=== PATIENT | male | born 1950 | race American Indian/Alaskan Native ===

== ENCOUNTER 2021-12-11 06:08 | Inpatient (IN) | payer MEDICARE ==
[2021-12-11 07:57] LABS: Basophils % (Auto) 0.6 % (0.0-1.8); Eosinophils # (Auto) 0.2 K/mm3 (0.0-0.4); Eosinophils % (Auto) 2.5 % (0.0-4.3); Hematocrit 21.3 % (35.5-45.6); Hemoglobin 7.1 gm/dl (11.8-15.2); Lymphocytes # (Auto) 2.2 K/mm3 (1.2-5.4); Lymphocytes % (Auto) 29.1 % (13.4-35.0); Mean Corpuscular HGB Conc 34 % (32-34); Mean Corpuscular Volume 75 fl (84-94); Monocytes # (Auto) 0.7 K/mm3 (0.0-0.8); Monocytes % (Auto) 9.8 % (0.0-7.3); Platelet Count 226 K/mm3 (140-440); Red Blood Count 2.84 M/mm3 (3.65-5.03)
[2021-12-11 08:20] LABS: Albumin 3.7 g/dL (3.9-5); Calcium 8.8 mg/dL (8.4-10.2)
[2021-12-11] MEDS ORDERED: SODIUM CHLORIDE 0.9% 1000 ML 1,000 ML IV ONE (11:00)
--- NOTE | 2021-12-11 11:48 | Emergency Department Report ---
ED GI Bleed HPI - General Chief complaint: GI Bleed Stated complaint: RECTAL BLEEDING Time Seen by Provider: 12/11/21 10:29 Source: patient, old records reviewed Mode of arrival: Ambulatory Limitations: No Limitations - History of Present Illness Initial comments: 71-year-old male history of hypertension, type 2 diabetes, coronary artery disease with stent placement x3 around August 2019 presents to the hospital complaining of intermittent blood with bowel movement for the past 4 days. Patient planes of generalized weakness without dyspnea on exertion, abdominal pain, or chest pain. Last blood in the stool was prior to ED arrival this morning. As per medical record review patient was admitted here February 2021 for hemoglobin of 6 and rectal bleeding suspected to be due to diverticulosis. Patient did not follow-up with outpatient GI as suggested for colonoscopy. Last colonoscopy was 2009 as per patient. Severity scale (0 -10): 2 - Related Data Home Medications Medication Instructions Recorded Confirmed Last Taken Aspirin [Vazalore] 81 mg PO DAILY 02/23/21 02/23/21 02/22/21 08:00 Atorvastatin [Lipitor] 40 mg PO DAILY 02/23/21 02/23/21 02/22/21 08:00 Glipizide/Metformin HCl 10 mg PO BID 02/23/21 02/23/21 02/22/21 08:00 [glipiZIDE-Metformin 5-500 mg] Metoprolol 25 mg PO DAILY 02/23/21 02/23/21 Unknown Multi-Day Plus Minerals Tablet 1 tab PO DAILY 02/23/21 02/23/21 02/22/21 08:00 NIFEdipine [Nifedipine ER] 60 mg PO BID 02/23/21 02/23/21 02/22/21 08:00 Omeprazole 20 mg PO DAILY 02/23/21 02/23/21 02/22/21 08:00 Sildenafil 100 mg PO DAILY PRN 02/23/21 02/23/21 Unknown Sitagliptin Phosphate [Januvia] 100 mg PO DAILY 02/23/21 02/23/21 02/22/21 08:00 Previous Rx's Medication Instructions Recorded Last Taken Type Linagliptin [Tradjenta] 5 mg PO QDAY tablet 02/24/21 Unknown Rx Metoprolol [Lopressor TAB] 25 mg PO DAILY tablet 02/24/21 Unknown Rx NIFEdipine XL [Procardia Xl] 60 mg PO BID tablet 02/24/21 Unknown Rx Pantoprazole [Protonix TAB] 20 mg PO QDAC 30 Days #30 tablet. 02/24/21 Unknown Rx lisinopriL [Zestril TAB] 20 mg PO DAILY tablet 02/24/21 Unknown Rx Allergies Allergy/AdvReac Type Severity Reaction Status Date / Time clopidogrel [From Plavix] Allergy Hives Verified 02/22/21 15:24 ED Review of Systems ROS: Stated complaint: RECTAL BLEEDING Other details as noted in HPI Comment: All other systems reviewed and negative ED Past Medical Hx - Past Medical History Hx Hypertension: Yes Hx Diabetes: Yes Additional medical history: CAD - Surgical History Hx Coronary Stent: Yes - Social History Smoking Status: Never Smoker Substance Use Type: None - Medications Home Medications: Home Medications Medication Instructions Recorded Confirmed Last Taken Type Aspirin [Vazalore] 81 mg PO DAILY 02/23/21 02/23/21 02/22/21 08:00 History Atorvastatin [Lipitor] 40 mg PO DAILY 02/23/21 02/23/21 02/22/21 08:00 History Glipizide/Metformin HCl 10 mg PO BID 02/23/21 02/23/21 02/22/21 08:00 History [glipiZIDE-Metformin 5-500 mg] Metoprolol 25 mg PO DAILY 02/23/21 02/23/21 Unknown History Multi-Day Plus Minerals Tablet 1 tab PO DAILY 02/23/21 02/23/21 02/22/21 08:00 History NIFEdipine [Nifedipine ER] 60 mg PO BID 02/23/21 02/23/21 02/22/21 08:00 History Omeprazole 20 mg PO DAILY 02/23/21 02/23/21 02/22/21 08:00 History Sildenafil 100 mg PO DAILY PRN 02/23/21 02/23/21 Unknown History Sitagliptin Phosphate [Januvia] 100 mg PO DAILY 02/23/21 02/23/21 02/22/21 08:00 History Linagliptin [Tradjenta] 5 mg PO QDAY tablet 02/24/21 Unknown Rx Metoprolol [Lopressor TAB] 25 mg PO DAILY tablet 02/24/21 Unknown Rx NIFEdipine XL [Procardia Xl] 60 mg PO BID tablet 02/24/21 Unknown Rx Pantoprazole [Protonix TAB] 20 mg PO QDAC 30 Days #30 tablet. 02/24/21 Unknown Rx lisinopriL [Zestril TAB] 20 mg PO DAILY tablet 02/24/21 Unknown Rx ED Physical Exam - General Limitations: No Limitations - Other Other exam information: General: No acute distress Head: Atraumatic Eyes: normal appearance ENT: Moist mucous membranes Neck: Normal appearance, no midline tenderness Chest: Clear to auscultation bilaterally CV: Regular rate and rhythm Abdomen: Soft, normal bowel sounds, nontender, nondistended, no rebound or guarding Rectal: Positive blood stool with mild blood Back: Normal inspection Extremity: Normal inspection, full range of motion Neuro: Alert O x 3, no facial asymmetry, speech clear, no gross motor sensory deficit Psych: Appropriate behavior Skin: No rash ED Course Vital Signs 12/11/21 12/11/21 06:13 10:13 Temperature 98.5 F Pulse Rate 67 Respiratory 18 16 Rate Blood Pressure 125/51 [Right] O2 Sat by Pulse 99 99 Oximetry - Consultations Consultation #1: 12/11/21 12:24 case d/w DR Blanca DENNIS television and radio repairer. will consult, recommends admission ED Medical Decision Making - Lab Data Result diagrams: 12/11/21 07:38 12/11/21 07:38 Lab Results 12/11/21 12/11/21 12/11/21 Range/Units 07:38 07:38 07:42 WBC 7.5 (4.5-11.0) K/mm3 RBC 2.84 L (3.65-5.03) M/mm3 Hgb 7.1 L (11.8-15.2) gm/dl Hct 21.3 L (35.5-45.6) % MCV 75 L (84-94) fl MCH 25 L (28-32) pg MCHC 34 (32-34) % RDW 21.0 H (13.2-15.2) % Plt Count 226 (140-440) K/mm3 Lymph % (Auto) 29.1 (13.4-35.0) % Hanson % (Auto) 9.8 H (0.0-7.3) % Eos % (Auto) 2.5 (0.0-4.3) % Baso % (Auto) 0.6 (0.0-1.8) % Lymph # (Auto) 2.2 (1.2-5.4) K/mm3 [place]on # (Auto) 0.7 (0.0-0.8) K/mm3 Eos # (Auto) 0.2 (0.0-0.4) K/mm3 Baso # (Auto) 0.0 (0.0-0.1) K/mm3 Seg Neutrophils % 58.0 (40.0-70.0) % Seg Neutrophils # 4.3 (1.8-7.7) K/mm3 Sodium 138 (137-145) mmol/L Potassium 4.6 (3.6-5.0) mmol/L Chloride 108.2 H (98-107) mmol/L Carbon Dioxide 22 (22-30) mmol/L Anion Gap 12 mmol/L BUN 35 H (9-20) mg/dL Creatinine 1.8 H (0.8-1.3) mg/dL Estimated GFR 45 ml/min BUN/Creatinine Ratio 19 % Glucose 165 H (75-100) mg/dL Calcium 8.8 (8.4-10.2) mg/dL Total Bilirubin 0.20 (0.1-1.2) mg/dL AST 14 (5-40) units/L ALT 14 (7-56) units/L Alkaline Phosphatase 32 L (35-129) units/L Total Protein 5.9 L (6.3-8.2) g/dL Albumin 3.7 L (3.9-5) g/dL Albumin/Globulin Ratio 1.7 % Blood Type A POSITIVE Antibody Screen Negative - Medical Decision Making 71-year-old male presents to the hospital with rectal bleeding for the last 4 days. Patient does have anemia and reports symptoms of generalized weakness. No tenderness on examination. Brown bloody stool o rectal exam which is guaiac positive. Hemoglobin currently 7.1. Case discussed with GI doctor who recommends admission and will consult. Critical Care Time: No Critical care attestation.: If time is entered above; I have spent that time in minutes in the direct care of this critically ill patient, excluding procedure time. ED Disposition Clinical Impression: Symptomatic anemia, Rectal bleeding, Mild renal insufficiency Disposition: ADMITTED INPATIENT Is pt being admited?: Yes Condition: Stable Time of Disposition: 13:07 (DR Lala/hospitalist)
[2021-12-11] MEDS ORDERED: ACETAMINOPHEN 325 MG TAB PO PRN (13:08)
[2021-12-11] MEDS ORDERED: ONDANSETRON 4 MG/2 ML INJ IV PRN (13:08)
[2021-12-11] MEDS ORDERED: MORPHINE 2 MG/1 ML INJ IV PRN (13:12)
[2021-12-11] MEDS ORDERED: SODIUM CHLORIDE 0.9% 500 ML 500 ML IV SCH (17:30)
--- NOTE | 2021-12-11 18:32 | Cat Scan Report ---
CTA ABDOMEN AND PELVIS WITHOUT AND WITH CONTRAST INDICATION / CLINICAL INFORMATION: Active diverticular bleed. TECHNIQUE: Axial CT images were obtained through the abdomen and pelvis before and after after inject ion of 100 cc of Omnipaque 350 IV contrast. 3 plane MIP / 3D reconstructions were produced. All CT sc ans at this location are performed using CT dose reduction for ALARA by means of automated exposure c ontrol. COMPARISON: None available. FINDINGS: AORTA: Mild plaque RENAL ARTERIES: No significant abnormality. CELIAC ARTERY: No significant abnormality. SUPERIOR MESENTERIC ARTERY: No significant abnormality. INFERIOR MESENTERIC ARTERY: No significant abnormality. RIGHT ILIAC ARTERIES: There is mild plaque without significant stenosis.. LEFT ILIAC ARTERIES: There is mild plaque without significant stenosis.. ADDITIONAL FINDINGS: There is accumulation of contrast in the proximal right colon which increases ov er time characteristic of active bleeding site. The liver, spleen, pancreas, adrenal glands, and kidneys show no acute abnormality. There are cysts n oted in the left kidney. There are scattered diverticula in the colon. There is a high density nodular structure in the cecum which measures approximately 1 cm. There is a radiopaque oval structure in the cecum adjacent to this nodular abnormality. The site of contrast accumulation is distal to these structures. SKELETAL: No acute abnormality. IMPRESSION: 1. There is indication of active bleeding into the proximal right colon with accumulation of tracer i n the lumen of the proximal right colon. 2. There is a 1 cm nodular structure which is high in density in the cecum there is a oval radiopaque structure within the colon adjacent to this which is of uncertain etiology. The site of contrast acc umulation within the right colon is approximately 8 to 10 cm distal to this nodular abnormality.. Signer Name: Ishmael Shannon MD Signed: 12/11/2021 6:28 PM Workstation Name: [id number]
--- NOTE | 2021-12-11 21:10 | Consultation ---
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 Today, he has had 2 bloody bowel movements but noted that they seem to be more red and more voluminous. This morning, he became tired while in the shower. He denies any abdominal pain, nausea, vomiting. There has been no chest pain or shortness of breath. Bowel movements are usually once or twice a day and there has been no change. There is been no weight loss. Of note, he has had bleeding like this before. He was previously here in February 2021 where he was found to have a hemoglobin of 6.0 and admitted for transfusion and evaluation. He had had hematochezia 3 weeks prior to that admission, which lasted 3 days. This spontaneously reso lved. He denied having abdominal pain, nausea, vomiting, chest pain, lightheadedness, or dizziness. He was told at that time to get a colonoscopy done as an outpatient, but he did not follow-up at that time. Patient notes that he had prior similar bleeding in 2009, and was hospitalized at [facility] at that time and diagnosed with diverticular bleed. He was advised to stay on a high-fiber diet which he did for several years and then gradually tapered off. He denies weight loss. His last colonoscopy was in 2009 and was normal. There is no family history of colon cancer. Patient does have chronic GERD for which he takes daily omeprazole. He is takes a daily 81 mg aspirin for coronary artery disease. Medications reviewed. 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 denies: smoking, alcohol abuse Medications and Allergies Allergies Allergy/AdvReac Type Severity Reaction Status Date / Time clopidogrel [From Plavix] Allergy Hives Verified 02/22/21 15:24 Home Medications Medication Instructions Recorded Confirmed Last Taken Type Aspirin [Vazalore] 81 mg PO DAILY 02/23/21 02/23/21 02/22/21 08:00 History Atorvastatin [Lipitor] 40 mg PO DAILY 02/23/21 02/23/21 02/22/21 08:00 History Glipizide/Metformin HCl 10 mg PO BID 02/23/21 02/23/21 02/22/21 08:00 History [glipiZIDE-Metformin 5-500 mg] Metoprolol 25 mg PO DAILY 02/23/21 02/23/21 Unknown History Multi-Day Plus Minerals Tablet 1 tab PO DAILY 02/23/21 02/23/21 02/22/21 08:00 History NIFEdipine [Nifedipine ER] 60 mg PO BID 02/23/21 02/23/21 02/22/21 08:00 History Omeprazole 20 mg PO DAILY 02/23/21 02/23/21 02/22/21 08:00 History Sildenafil 100 mg PO DAILY PRN 02/23/21 02/23/21 Unknown History Sitagliptin Phosphate [Januvia] 100 mg PO DAILY 02/23/21 02/23/21 02/22/21 08:00 History Linagliptin [Tradjenta] 5 mg PO QDAY tablet 02/24/21 Unknown Rx Metoprolol [Lopressor TAB] 25 mg PO DAILY tablet 02/24/21 Unknown Rx NIFEdipine XL [Procardia Xl] 60 mg PO BID tablet 02/24/21 Unknown Rx Pantoprazole [Protonix TAB] 20 mg PO QDAC 30 Days #30 tablet. 02/24/21 Unknown Rx lisinopriL [Zestril TAB] 20 mg PO DAILY tablet 02/24/21 Unknown Rx Active Meds: Active Medications Acetaminophen (Acetaminophen 325 Mg Tab) 650 mg PO Q4H PRN PRN Reason: Pain MILD(1-3)/Fever >100.5/MUELLER Sodium Chloride (Nacl 0.9% 500 Ml) 500 mls @ 0 mls/hr IV ONCE@1730 PIETER Stop: 12/11/21 22:00 Morphine Sulfate (Morphine 2 Mg/1 Ml Inj) 2 mg IV Q4H PRN PRN Reason: Pain, Moderate (4-6) Ondansetron HCl (Ondansetron 4 Mg/2 Ml Inj) 4 mg IV Q8H PRN PRN Reason: Nausea And Vomiting Sodium Chloride (Sodium Chloride 0.9% 10 Ml Flush Syringe) 10 ml IV BID [facility] Sodium Chloride (Sodium Chloride 0.9% 10 Ml Flush Syringe) 10 ml IV PRN PRN PRN Reason: LINE FLUSH Review of Systems All systems: negative (As per HPI) Exam - Constitutional Vitals: Temp Pulse Resp BP Pulse Ox 97.9 F 55 L 14 135/58 100 12/11/21 19:30 12/11/21 19:30 12/11/21 19:30 12/11/21 19:30 12/11/21 19:30 General appearance: Present: no acute distress - EENT Eyes: Present: PERRL, EOM intact ENT: hearing intact - Respiratory Respiratory effort: normal Respiratory: bilateral: CTA - Cardiovascular Rhythm: regular Heart Sounds: Present: S1 & S2 - Abdominal General gastrointestinal: Present: soft, non-tender Results - Labs CBC & Chem 7: 12/11/21 07:38 12/11/21 07:38 Labs: Abnormal lab results 12/11/21 12/11/21 12/11/21 Range/Units 07:38 07:38 07:42 RBC 2.84 L (3.65-5.03) M/mm3 Hgb 7.1 L (11.8-15.2) gm/dl Hct 21.3 L (35.5-45.6) % MCV 75 L (84-94) fl MCH 25 L (28-32) pg RDW 21.0 H (13.2-15.2) % Hubbard % (Auto) 9.8 H (0.0-7.3) % Chloride 108.2 H (98-107) mmol/L BUN 35 H (9-20) mg/dL Creatinine 1.8 H (0.8-1.3) mg/dL Glucose 165 H (75-100) mg/dL Alkaline Phosphatase 32 L (35-129) units/L Total Protein 5.9 L (6.3-8.2) g/dL Albumin 3.7 L (3.9-5) g/dL Crossmatch See Detail Assessment and Plan 1. Hematocheziagoing on for 4 days. Patient is anemic. This is likely diverticular in origin though mass lesions cannot be excluded. Upper GI source is possible but much less likely given the character of the bleeding. Monitor hemoglobin and transfuse as needed Empiric proton pump inhibitor We will proceed with colonoscopy tomorrow
[2021-12-11] MEDS ORDERED: POLYETHYLENE GLYCOL/ELECT SOLN 4000 ML PO ONE (21:13)
[2021-12-12] MEDS ORDERED: SODIUM CHLORIDE 0.9% 1000 ML 1,000 ML IV SCH (00:15)
--- NOTE | 2021-12-12 06:51 | History and Physical Report ---
History of Present Illness Date of examination: 12/11/21 Date of admission: 12/11/21 13:08 Chief complaint: Bright red blood per rectum since last night History of present illness: 71-year-old -G[place] male with history of diverticulosis and 2 episodes of lower GI bleed in the past couple of years comes in for lower GI bleed since last night. Some abdominal pain present. Cramping pain. Intermittent bleeding from the lower GI tract since last night. No lightheadedness no dizziness no syncope. Patient had first episode of diverticulosis in 2009 and second episode of diverticulosis February 2021 and was treated at [facility] no chest pain. Patient did not follow-up with outpatient GI - Past Medical History --Hypertension: Yes --Diabetes: Yes --Additional medical history: CAD - Surgical History --Coronary Stent: Yes - Social History --Smoking Status: Never Smoker --Substance Use Type: None -Family history --Htn Review of Systems ROS: Constitutional no weight loss or weight gain no fever or chills HEENT no sore throat no post nasal drip no diplopia Neck no neck stiffness no lymph gland enlargement Chest and lungs no shortness of breath cough or wheezing CVS no chest pain no diaphoresis no palpitations GI per rectal bleed since last night Genitourinary system no dysuria no flank pain Musculoskeletal system no muscle pains no joint pains UNIT CLERK no syncope no seizures Skin no rash no itching Psychiatric no depression no homicidal or suicidal tendencies Hematologic no lymphedema or bruising Endocrine no polydipsia no polyuria no cold intolerance no heat intolerance Past History Past Medical History: CAD (Stents placed in August 2019), diabetes, GERD, hypertension Past Surgical History: PTCA (With stents in August 2019) 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 denies: smoking, alcohol abuse Medications and Allergies Allergies Allergy/AdvReac Type Severity Reaction Status Date / Time clopidogrel [From Plavix] Allergy Hives Verified 02/22/21 15:24 Home Medications Medication Instructions Recorded Confirmed Last Taken Type Aspirin [Vazalore] 81 mg PO DAILY 02/23/21 12/12/21 12/10/21 09:00 History Atorvastatin [Lipitor] 40 mg PO DAILY 02/23/21 12/12/21 12/10/21 21:00 History Glipizide/Metformin HCl 10 mg PO BID 11/12/12/21 12/10/21 21:00 History [glipiZIDE-Metformin 5-500 mg] Metoprolol 25 mg PO DAILY 02/23/21 02/23/21 Unknown History Multi-Day Plus Minerals Tablet 1 tab PO DAILY 02/23/21 02/23/21 12/10/21 21:00 History NIFEdipine [Nifedipine ER] 60 mg PO BID 02/23/21 12/12/21 12/11/21 09:00 History Omeprazole 20 mg PO DAILY 02/23/21 02/23/21 02/22/21 08:00 History Sildenafil 100 mg PO DAILY PRN 02/23/21 12/12/21 12/09/21 20:45 History Sitagliptin Phosphate [Januvia] 100 mg PO DAILY 02/23/21 12/12/21 12/10/21 09:00 History Linagliptin [Tradjenta] 5 mg PO QDAY tablet 02/24/21 12/10/21 09:00 Rx NIFEdipine XL [Procardia Xl] 60 mg PO BID tablet 02/24/21 Unknown Rx Pantoprazole [Protonix TAB] 20 mg PO QDAC 30 Days #30 tablet. 02/24/21 12/12/21 12/10/21 09:00 Rx lisinopriL [Zestril TAB] 20 mg PO DAILY tablet 02/24/21 12/12/21 12/10/21 09:00 Rx Metoprolol [Lopressor TAB] 12.5 mg PO DAILY 12/12/21 12/12/21 12/10/21 09:00 History Active Meds: Active Medications Acetaminophen (Acetaminophen 325 Mg Tab) 650 mg PO Q4H PRN PRN Reason: Pain MILD(1-3)/Fever >100.5/MUELLER Sodium Chloride (Nacl 0.9% 1000 Ml) 1,000 mls @ 100 mls/hr IV DIRECT PIETER Last Admin: 12/12/21 00:53 Dose: 100 mls/hr Morphine Sulfate (Morphine 2 Mg/1 Ml Inj) 2 mg IV Q4H PRN PRN Reason: Pain, Moderate (4-6) Ondansetron HCl (Ondansetron 4 Mg/2 Ml Inj) 4 mg IV Q8H PRN PRN Reason: Nausea And Vomiting Sodium Chloride (Sodium Chloride 0.9% 10 Ml Flush Syringe) 10 ml IV BID [facility] Last Admin: 12/11/21 22:18 Dose: 10 ml Sodium Chloride (Sodium Chloride 0.9% 10 Ml Flush Syringe) 10 ml IV PRN PRN PRN Reason: LINE FLUSH Exam - Constitutional Vitals: Temp Pulse Resp BP Pulse Ox 98.2 F 68 17 149/77 98 12/11/21 20:55 12/11/21 21:30 12/11/21 21:30 12/11/21 21:30 12/11/21 21:55 General appearance: Present: mild distress, well-nourished - EENT Eyes: Present: PERRL ENT: hearing intact, clear oral mucosa - Neck Neck: Present: supple, normal ROM - Respiratory Respiratory effort: normal Respiratory: bilateral: CTA - Cardiovascular Heart rate: 78 Rhythm: regular Heart Sounds: Present: S1 & S2. Absent: rub, click - Extremities Extremities: no ischemia, pulses intact, pulses symmetrical, No edema Peripheral Pulses: within normal limits - Abdominal General gastrointestinal: Present: soft, non-tender, non-distended, normal bowel sounds Male genitourinary: Present: normal - Rectal Rectal Exam: stool bloody - Integumentary Integumentary: Present: clear, warm, dry - Musculoskeletal Musculoskeletal: gait normal, strength equal bilaterally - Psychiatric Psychiatric: appropriate mood/affect, intact judgment & insight - Neurologic Neurologic: CNII-XII intact, moves all extremities Results - Labs CBC & Chem 7: 12/11/21 07:38 12/11/21 07:38 Labs: Laboratory Last Values WBC 7.5 K/mm3 (4.5-11.0) 12/11/21 07:38 RBC 2.84 M/mm3 (3.65-5.03) L 12/11/21 07:38 Hgb 7.1 gm/dl (11.8-15.2) L 12/11/21 07:38 Hct 21.3 % (35.5-45.6) L 12/11/21 07:38 MCV 75 fl (84-94) L 12/11/21 07:38 MCH 25 pg (28-32) L 12/11/21 07:38 MCHC 34 % (32-34) 12/11/21 07:38 RDW 21.0 % (13.2-15.2) H 12/11/21 07:38 Plt Count 226 K/mm3 (140-440) 12/11/21 07:38 Lymph % (Auto) 29.1 % (13.4-35.0) 12/11/21 07:38 [place] % (Auto) 9.8 % (0.0-7.3) H 12/11/21 07:38 Eos % (Auto) 2.5 % (0.0-4.3) 12/11/21 07:38 Baso % (Auto) 0.6 % (0.0-1.8) 12/11/21 07:38 Lymph # (Auto) 2.2 K/mm3 (1.2-5.4) 12/11/21 07:38 [place] # (Auto) 0.7 K/mm3 (0.0-0.8) 12/11/21 07:38 Eos # (Auto) 0.2 K/mm3 (0.0-0.4) 12/11/21 07:38 Baso # (Auto) 0.0 K/mm3 (0.0-0.1) 12/11/21 07:38 Seg Neutrophils % 58.0 % (40.0-70.0) 12/11/21 07:38 Seg Neutrophils # 4.3 K/mm3 (1.8-7.7) 12/11/21 07:38 Sodium 138 mmol/L (137-145) 12/11/21 07:38 Potassium 4.6 mmol/L (3.6-5.0) 12/11/21 07:38 Chloride 108.2 mmol/L (98-107) H 12/11/21 07:38 Carbon Dioxide 22 mmol/L (22-30) 12/11/21 07:38 Anion Gap 12 mmol/L 12/11/21 07:38 BUN 35 mg/dL (9-20) H 12/11/21 07:38 Creatinine 1.8 mg/dL (0.8-1.3) H 12/11/21 07:38 Estimated GFR 45 ml/min 12/11/21 07:38 BUN/Creatinine Ratio 19 % 12/11/21 07:38 Glucose 165 mg/dL (75-100) H 12/11/21 07:38 Calcium 8.8 mg/dL (8.4-10.2) 12/11/21 07:38 Total Bilirubin 0.20 mg/dL (0.1-1.2) 12/11/21 07:38 AST 14 units/L (5-40) 12/11/21 07:38 ALT 14 units/L (7-56) 12/11/21 07:38 Alkaline Phosphatase 32 units/L (35-129) L 12/11/21 07:38 Total Protein 5.9 g/dL (6.3-8.2) L 12/11/21 07:38 Albumin 3.7 g/dL (3.9-5) L 12/11/21 07:38 Albumin/Globulin Ratio 1.7 % 12/11/21 07:38 Blood Type A POSITIVE 12/11/21 07:42 Antibody Screen Negative 12/11/21 07:42 Crossmatch See Detail 12/11/21 07:42 Microbiology: Microbiology 12/11/21 10:58 Stool Stool Occult Blood (THOMAS) - Final - Imaging and Cardiology Imaging and Cardiology: CT angiogram There is indication of active bleeding and the proximal right colon with accumulation of tracer within the lumen of the proximal right colon There is a 1 cm nodular structure which is high intensity in the cecum. There is a oval radiopaque structure within the colon adjacent to this which is of uncertain etiology. The site of contrast recommendation within the right colon is approximately 8 to 10 cm distal to this nodular abnormality. Cooper/IV: Voiding Method Toilet Assessment and Plan Advance Directives: Yes (Full code) VTE prophylaxis?: Mechanical Plan of care discussed with patient/family: Yes - Patient Problems (1) Lower GI bleed Current Visit: Yes Status: Acute Plan to address problem: Possible diverticular bleed because of with past history GI consulted Hemoglobin and hematocrit every 8 hours Hemoglobin is 7.1 and borderline Will transfuse 1 unit of packed red blood cells and anticipation of further GI. (2) Symptomatic anemia Current Visit: Yes Status: Acute Plan to address problem: Transfuse 1 unit of packed red blood cells because the hemoglobin is 7.1 (3) DANNI (acute kidney injury) Current Visit: Yes Status: Acute Plan to address problem: IV fluids for now Vasomotor nephropathy (4) T2DM (type 2 diabetes mellitus) Current Visit: Yes Status: Chronic Qualifiers: Diabetes mellitus detention insulin use: unspecified detention insulin use status Plan to address problem: Accu-Cheks every 6 and coverage for now Check hemoglobin A1c (5) Hypertension Current Visit: Yes Status: Chronic Qualifiers: Hypertension type: primary hypertension Qualified Code(s): I10 - Essential (primary) hypertension Plan to address problem: On antihypertensives and GI prophylaxis (6) Advance care planning Current Visit: Yes Status: Acute Plan to address problem: Disease education conducted, care plan discussed, diagnosis and prognosis discussed. Patient is full code. Care plan +30 minutes. Patient acknowledged understanding.
--- NOTE | 2021-12-12 08:53 | Consultation ---
History of Present Illness Consult date: 12/12/21 Reason for consult: other (lower GI bleeding) Requesting physician: DALTON BRAVO Chief complaint: lower GI bleeding - History of present illness this is a 71 yo man with hx of CAD s/p coronary stents x3 last in 2020, HTN, presented with recurrent GI bleeding. he saw red blood with stool for the last 2 days that increased in volume yesterday which brought him to the ER. he was seen for the same presentation in April where the bleeding was self limited but he failed to follow up outpatient for colonoscopy. his last colonoscopy was in 2009 had small benign polyp. denies abdominal or rectal pain, denies constipation, denies protruding hemorrhoids. denies history of cancer. the patient's hb was 7 in ED and he was hemodynamically stable. he was given 1 unit PRBC overnight and labs are pending. remained stable and started golytely, did not see any blood in his stool since 1am. Past History Past Medical History: CAD (Stents placed in August 2019), diabetes, GERD, hypertension Past Surgical History: appendectomy (open in 1960s), PTCA (With stents in August 2019) Social history: , other ([employer]). denies: smoking, alcohol abuse Medications and Allergies Allergies Allergy/AdvReac Type Severity Reaction Status Date / Time clopidogrel [From Plavix] Allergy Hives Verified 02/22/21 15:24 Home Medications Medication Instructions Recorded Confirmed Last Taken Type Aspirin [[place]] 81 mg PO DAILY 02/23/21 12/12/21 12/10/21 09:00 History Atorvastatin [Lipitor] 40 mg PO DAILY 02/23/21 12/12/21 12/10/21 21:00 History Glipizide/Metformin HCl 10 mg PO BID 02/23/21 12/12/21 12/10/21 21:00 History [glipiZIDE-Metformin 5-500 mg] Metoprolol 25 mg PO DAILY 02/23/21 02/23/21 Unknown History Multi-Day Plus Minerals Tablet 1 tab PO DAILY 02/23/21 02/23/21 12/10/21 21:00 History NIFEdipine [Nifedipine ER] 60 mg PO BID 02/23/21 12/12/21 12/11/21 09:00 History Omeprazole 20 mg PO DAILY 02/23/21 02/23/21 02/22/21 08:00 History Sildenafil 100 mg PO DAILY PRN 02/23/21 12/12/21 12/09/21 20:45 History Sitagliptin Phosphate [Januvia] 100 mg PO DAILY 02/23/21 12/12/21 12/10/21 09:00 History Linagliptin [Tradjenta] 5 mg PO QDAY tablet 02/24/21 12/10/21 09:00 Rx NIFEdipine XL [Procardia Xl] 60 mg PO BID tablet 02/24/21 Unknown Rx Pantoprazole [Protonix TAB] 20 mg PO QDAC 30 Days #30 tablet. 02/24/21 12/12/21 12/10/21 09:00 Rx lisinopriL [Zestril TAB] 20 mg PO DAILY tablet 02/24/21 12/12/21 12/10/21 09:00 Rx Metoprolol [Lopressor TAB] 12.5 mg PO DAILY 12/12/21 12/12/21 12/10/21 09:00 History Active Meds: Active Medications Acetaminophen (Acetaminophen 325 Mg Tab) 650 mg PO Q4H PRN PRN Reason: Pain MILD(1-3)/Fever >100.5/MUELLER Sodium Chloride (Nacl 0.9% 1000 Ml) 1,000 mls @ 100 mls/hr IV DIRECT [facility] Last Admin: 12/12/21 00:53 Dose: 100 mls/hr Morphine Sulfate (Morphine 2 Mg/1 Ml Inj) 2 mg IV Q4H PRN PRN Reason: Pain, Moderate (4-6) Ondansetron HCl (Ondansetron 4 Mg/2 Ml Inj) 4 mg IV Q8H PRN PRN Reason: Nausea And Vomiting Sodium Chloride (Sodium Chloride 0.9% 10 Ml Flush Syringe) 10 ml IV BID [facility] Last Admin: 12/11/21 22:18 Dose: 10 ml Sodium Chloride (Sodium Chloride 0.9% 10 Ml Flush Syringe) 10 ml IV PRN PRN PRN Reason: LINE FLUSH Results - Labs 12/11/21 07:38 12/11/21 07:38 Abnormal lab results 12/11/21 Range/Units 07:42 Crossmatch See Detail All other labs normal. Exam Vital Signs Temp Pulse Resp BP Pulse Ox 98.5 F 67 18 125/51 99 12/11/21 06:13 12/11/21 06:13 12/11/21 06:13 12/11/21 06:13 12/11/21 06:13 Vital Signs - 24 hr 12/11/21 12/11/21 12/11/21 10:13 10:52 11:00 Temperature Pulse Rate Respiratory 16 Rate Blood Pressure 114/53 Blood Pressure [Right] O2 Sat by Pulse 99 99 99 Oximetry 12/11/21 12/11/21 12/11/21 11:16 11:30 11:45 Temperature Pulse Rate Respiratory Rate Blood Pressure 114/53 114/53 108/49 Blood Pressure [Right] O2 Sat by Pulse 100 100 99 Oximetry 12/11/21 12/11/21 12/11/21 12:01 12:15 12:31 Temperature Pulse Rate Respiratory Rate Blood Pressure 114/53 114/53 108/49 Blood Pressure [Right] O2 Sat by Pulse 100 100 98 Oximetry 12/11/21 12/11/21 12/11/21 12:45 13:01 13:15 Temperature Pulse Rate Respiratory Rate Blood Pressure 108/49 108/49 108/49 Blood Pressure [Right] O2 Sat by Pulse 97 100 100 Oximetry 12/11/21 12/11/21 12/11/21 13:31 13:45 14:01 Temperature Pulse Rate Respiratory Rate Blood Pressure 108/49 108/49 108/49 Blood Pressure [Right] O2 Sat by Pulse 97 98 97 Oximetry 12/11/21 12/11/21 12/11/21 14:15 14:31 14:45 Temperature Pulse Rate Respiratory Rate Blood Pressure 108/49 108/49 117/40 Blood Pressure [Right] O2 Sat by Pulse 99 99 99 Oximetry 12/11/21 12/11/21 12/11/21 15:01 15:15 15:31 Temperature Pulse Rate Respiratory Rate Blood Pressure 117/40 117/40 117/40 Blood Pressure [Right] O2 Sat by Pulse 97 99 100 Oximetry 12/11/21 12/11/21 12/11/21 15:45 16:01 16:15 Temperature Pulse Rate Respiratory Rate Blood Pressure 117/40 117/40 117/40 Blood Pressure [Right] O2 Sat by Pulse 99 100 99 Oximetry 12/11/21 12/11/21 12/11/21 16:31 16:46 18:00 Temperature 97.9 F Pulse Rate 63 Respiratory 16 Rate Blood Pressure 117/40 108/49 Blood Pressure 141/64 [Right] O2 Sat by Pulse 100 99 100 Oximetry 12/11/21 12/11/21 12/11/21 18:15 18:19 18:27 Temperature 98 F 97.9 F Pulse Rate 58 L 55 L Respiratory 16 14 Rate Blood Pressure 117/40 135/58 Blood Pressure 138/58 [Right] O2 Sat by Pulse 100 100 100 Oximetry 12/11/21 12/11/21 12/11/21 18:30 18:45 18:57 Temperature Pulse Rate 55 L Respiratory 14 Rate Blood Pressure 138/59 135/58 135/58 Blood Pressure [Right] O2 Sat by Pulse 100 100 100 Oximetry 12/11/21 12/11/21 12/11/21 19:01 19:15 19:20 Temperature 97.9 F Pulse Rate 55 L Respiratory 14 Rate Blood Pressure 135/58 135/58 135/58 Blood Pressure [Right] O2 Sat by Pulse 100 100 100 Oximetry 12/11/21 12/11/21 12/11/21 19:27 19:30 19:31 Temperature 97.9 F 97.9 F Pulse Rate 55 L 55 L 58 L Respiratory 14 14 12 Rate Blood Pressure 135/58 135/55 Blood Pressure 135/58 [Right] O2 Sat by Pulse 100 100 100 Oximetry 12/11/21 12/11/21 12/11/21 19:45 19:57 20:01 Temperature Pulse Rate 54 L 54 L 53 L Respiratory 14 14 14 Rate Blood Pressure 139/64 139/64 142/67 Blood Pressure [Right] O2 Sat by Pulse 100 100 100 Oximetry 12/11/21 12/11/21 12/11/21 20:15 20:27 20:31 Temperature Pulse Rate 107 H 65 65 Respiratory 17 13 13 Rate Blood Pressure 145/60 131/67 131/67 Blood Pressure [Right] O2 Sat by Pulse 100 100 100 Oximetry 12/11/21 12/11/21 12/11/21 20:45 20:55 21:01 Temperature 98.2 F Pulse Rate 68 78 69 Respiratory 14 14 13 Rate Blood Pressure 138/71 138/71 149/77 Blood Pressure [Right] O2 Sat by Pulse 100 100 99 Oximetry 12/11/21 12/11/21 12/11/21 21:14 21:20 21:30 Temperature Pulse Rate 72 68 68 Respiratory 11 L 13 17 Rate Blood Pressure 138/71 149/77 149/77 Blood Pressure [Right] O2 Sat by Pulse 99 99 100 Oximetry 12/11/21 12/12/21 21:55 08:18 Temperature Pulse Rate Respiratory Rate Blood Pressure Blood Pressure [Right] O2 Sat by Pulse 98 98 Oximetry - General physical appearance Positive: well developed, no distress - Respiratory Positive: normal expansion, normal respiratory effort - Cardiovascular Rhythm: regular - Abdomen Abdomen: soft (, non distended, non tender. RLQ scar from appendectomy) - Rectum Rectum: normal spincter tone, no hemorrhoids, no masses, no bleeding - Integumentary no rash - Neurologic other (alert, oriented, no apparents neurologic deficits) Assessment and Plan this is a 71 yo man with CAD, DM, HTN, recurrent lower GI bleeding with chronic anemia last colonoscopy 12 years ago. no apparent hemorrhoidal disease and no anal masses found on MAGNOLIA. this could be diverticular bleed or more serious diagnosis including colon mass especially with his hx of anemia and missed colonoscopy due to poor follow up. upper GI bleeding unlikely. will fup colonoscopy and be available for any surgical interventions/procedures accordingly
[2021-12-12 09:10] LABS: Hematocrit 20.3 % (35.5-45.6); Hemoglobin 6.5 gm/dl (11.8-15.2); Mean Corpuscular HGB Conc 32 % (32-34); Mean Corpuscular Volume 79 fl (84-94); Platelet Count 190 K/mm3 (140-440); Red Blood Count 2.58 M/mm3 (3.65-5.03)
[2021-12-12 09:14] LABS: Red Cell Distribution Width 20.8 % (13.2-15.2)
[2021-12-12 09:40] LABS: Calcium 8.2 mg/dL (8.4-10.2)
[2021-12-12] MEDS ORDERED: SODIUM CHLORIDE 0.9% 500 ML 500 ML IV SCH (09:53)
[2021-12-12] MEDS ORDERED: propofoL 200 MG/20 ML VIAL IV ONE ×2 (11:00)
[2021-12-12] MEDS ORDERED: DEXTROSE 50% IN WATER (25GM) 50 ML SYRINGE IV PRN ×2 (11:00→23:59)
[2021-12-12] MEDS ORDERED: LIDOCAINE MPF (2%) 20 MG/1 ML VIAL 5 ML ONE (11:00)
--- NOTE | 2021-12-12 11:22 | Anesthesia Consultation ---
Anesthesia Consult and Med Hx Date of service: 12/12/21 - Airway Anesthetic Teeth Evaluation: Dentures, Edentulous ROM Head & Neck: Adequate Mental/Hyoid Distance: Adequate Mallampati Class: Class II Intubation Access Assessment: Probably Good - Pulmonary Exam CTA: Yes - Cardiac Exam Cardiac Exam: RRR - Pre-Operative Health Status ASA Pre-Surgery Classification: ASA3 Proposed Anesthetic Plan: MAC - Pulmonary Hx Smoking: No Hx Asthma: No Hx Pneumonia: No Hx Sleep Apnea: No - Cardiovascular System Hx Hypertension: Yes Hx Coronary Artery Disease: Yes (3 stents August 21, 2020; seen by carton liner 02/2021) Hx Heart Attack/AMI: Yes (?NSTEMI type 2) Hx Cardia Arrhythmia: Yes (LBBB) - Central Nervous System Hx Neuromuscular Disorder: No - Endocrine Hx End Stage Renal Disease: No Hx Liver Disease: No - Hematic Hx Anemia: Yes Hx Sickle Cell Disease: No - Other Systems Hx Alcohol Use: No Hx Cancer: No - Additional Comments Anesthesia Medical History Comments: No GAC. No FHAC.
--- NOTE | 2021-12-12 11:22 | Anesthesia Day of Surgery ---
Anesthesia Day of Surgery - Day of Surgery Patient Examined: Yes Patient H&P Reviewed: Yes Patient is NPO: Yes
--- NOTE | 2021-12-12 12:12 | Post Operative Note ---
Date of procedure: 12/12/21 Pre-op diagnosis: Hematochezia Post-op diagnosis: other (Diverticulosissource of bleed) Findings: 1. Single diverticulum in the mid ascending colon with some adherent streaks of heme, and on the inside, there were patchy superficial vessels with a single punctate raised area of red suggestive of a vessel. A clip was placed on this lesion. 2. Remainder of colon was normal-appearing with scattered diverticula noted throughout. There was no other blood noted in the colon and there was light yellow-brown stool that was liquid Procedure: Colonoscopy with clip placed Anesthesia: MAC Surgeon: ROSE BENITEZ Estimated blood loss: none Pathology: none Condition: stable Disposition: floor ((1. Advance diet, 2. Transfuse as needed, 3. If no further bleeding, may discharge home tomorrow))
--- NOTE | 2021-12-12 12:26 | Operative Report ---
DATE OF SURGERY: 12/12/2021 PROCEDURE: Colonoscopy with clip placement. PREOPERATIVE DIAGNOSIS: Hematochezia. POSTOPERATIVE DIAGNOSIS: Diverticulosis -- likely source of bleeding in ascending colon, diverticulum with stigmata. SEDATION: MAC by anesthesia. HISTORY: The patient is a 71-year-old man who presented with 4-day history of hematochezia. He came in with a hemoglobin of 6.5 after volume repletion. He had a history of bleeding previously in 02/2021 as well as in 2009. Bleeding has stopped with prep overnight. Procedure, indications, risks, and benefits were explained and consent was obtained. DESCRIPTION OF PROCEDURE: The patient was placed in left lateral decubitus position and sedated. Colonoscope was passed through rectum after digital examination and passed with minimal difficulty to the cecum, which was identified by the ileocecal valve and appendiceal orifice. Scope was then gradually withdrawn with close inspection of mucosa. Prep was good. FINDINGS: 1. In the ascending colon, there was a single diverticulum, which had trace of heme streaking the outside. On looking inside the diverticulum, there was a patch of small blood vessels with a central punctate protruding lesion in the mucosa that suggested a vessel. There was no fibrin plug or blood clot on it. Decision was made to place a clip over that collection of vessels and the protruding spot and a clip was deployed in good position. 2. Remainder of visualized colonic mucosa was normal appearing with moderate diverticulosis throughout the whole colon. Other than a trace of heme in the ascending colon, effluent in the rest of colon was light liquid yellow. There was no other stigmata of bleeding and there were no mass lesions. The patient tolerated the procedure well without immediate complications. IMPRESSION: 1. Ascending colon diverticulum with findings suspicious for source of bleeding. A clip was placed to prevent further bleeding in the future. 2. Otherwise, normal colonoscopy with diverticulosis. RECOMMENDATIONS: 1. Monitor overnight and advance diet. 2. Transfuse as needed. TID: [id number] RECEIPT: [id number] HRC/SAY
[2021-12-12] MEDS: INSULIN REGULAR, HUMAN 100 UNITS/1 ML SUB-Q SCH ×2 (12:51→16:52)
--- NOTE | 2021-12-12 15:53 | Progress Note ---
Assessment and Plan Assessment and plan: #Hematochezia #Symptomatic anemia with associated dyspnea on exertion Hemoglobin 7.1--> 6.5. Transfusing 2 units packed RBCs. Colonoscopy (12/12/2021) revealing single diverticulum in the mid ascending colon with some adherent streaks of heme with patchy superficial vessels with a punctate raised area of redness suggestive of a vessel. Clip was placed on his lesion. The remaining colon was normal-appearing with scattered diverticula noted throughout. Gastroenterology consulted; appreciate recs. Advance diet and transfuse as needed. Possible discharge home tomorrow. 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 Continue IV fluid resuscit ation. Monitor with repeat BMP tomorrow morning. #Non-insulin dependent type II diabetes mellitus - hemoglobin A1c: Unknown - home regimen: Linagliptin 5 mg daily, Sitagliptin 100 mg daily, glipizide/metformin 10 mg twice daily - current regimen: Moderate SSI - blood glucose goal 140-180 while inpatient - continue to monitor #Hypertension #Hyperlipidemia - home medications: Atorvastatin 40 mg daily, metoprolol succinate 25mg daily, nifedipine 60 mg daily, nifedipine 60 mg daily - current medications: Currently holding is a patient is normotensive - SBP goal <160 and DBP goal <90 while inpatient - continue to monitor #GERD Continue home pantoprazole 20 mg Critical Care Billing: The high probability of a clinically significant, sudden or life threatening deterioration of the [gastroenterology] system(s) required my full and direct attention, intervention and personal management. The aggregate critical care time was [60] minutes. This time is in addition to time spent performing reported procedures but includes the following: [x] Data Review and interpretation [x] Patient assessment and monitoring of vital signs [x] Documentation [x] Medication orders and management Disposition Plan: Continue medical management Total Time Spent with Patient (Minutes): 45 minutes History Interval history: No acute events overnight. Hospitalist Physical - Constitutional Vitals: Temp Pulse Resp BP Pulse Ox 97.6 F 53 L 17 151/64 100 12/12/21 15:15 12/12/21 15:15 12/12/21 15:15 12/12/21 15:15 12/12/21 15:15 General appearance: Present: no acute distress, well-nourished - EENT Eyes: Present: PERRL, irregular pupil ENT: hearing intact, clear oral mucosa, dentition normal - Neck Neck: Present: supple, normal ROM - Respiratory Respiratory effort: normal Respiratory: bilateral: CTA - Cardiovascular Rhythm: regular Heart Sounds: Present: S1 & S2 - Extremities Extremities: no ischemia, pulses intact, pulses symmetrical, No edema, normal temperature, normal color, Full ROM Peripheral Pulses: within normal limits - Abdominal General gastrointestinal: soft, non-tender, non-distended, normal bowel sounds - Integumentary Integumentary: Present: clear, warm, dry - Psychiatric Psychiatric: appropriate mood/affect, intact judgment & insight, memory intact, cooperative - Neurologic Neurologic: CNII-XII intact, moves all extremities - Allied Health Allied health notes reviewed: nursing Results - Labs CBC & Chem 7: 12/12/21 08:37 12/12/21 08:37 Labs: Laboratory Last Values WBC 6.9 K/mm3 (4.5-11.0) 12/12/21 08:37 RBC 2.58 M/mm3 (3.65-5.03) L 12/12/21 08:37 Hgb 6.5 gm/dl (11.8-15.2) L 12/12/21 08:37 Hct 20.3 % (35.5-45.6) L 12/12/21 08:37 MCV 79 fl (84-94) L 12/12/21 08:37 MCH 25 pg (28-32) L 12/12/21 08:37 MCHC 32 % (32-34) 12/12/21 08:37 RDW 20.8 % (13.2-15.2) H 12/12/21 08:37 Plt Count 190 K/mm3 (140-440) 12/12/21 08:37 Lymph % (Auto) 29.1 % (13.4-35.0) 12/11/21 07:38 Thomas % (Auto) 9.8 % (0.0-7.3) H 12/11/21 07:38 Eos % (Auto) 2.5 % (0.0-4.3) 12/11/21 07:38 Baso % (Auto) 0.6 % (0.0-1.8) 12/11/21 07:38 Lymph # (Auto) 2.2 K/mm3 (1.2-5.4) 12/11/21 07:38 Thomas # (Auto) 0.7 K/mm3 (0.0-0.8) 12/11/21 07:38 Eos # (Auto) 0.2 K/mm3 (0.0-0.4) 12/11/21 07:38 Baso # (Auto) 0.0 K/mm3 (0.0-0.1) 12/11/21 07:38 Seg Neutrophils % 58.0 % (40.0-70.0) 12/11/21 07:38 Seg Neutrophils # 4.3 K/mm3 (1.8-7.7) 12/11/21 07:38 Sodium 143 mmol/L (137-145) 12/12/21 08:37 Potassium 4.5 mmol/L (3.6-5.0) 12/12/21 08:37 Chloride 113.1 mmol/L (98-107) H 12/12/21 08:37 Carbon Dioxide 22 mmol/L (22-30) 12/12/21 08:37 Anion Gap 12 mmol/L 12/12/21 08:37 BUN 29 mg/dL (9-20) H 12/12/21 08:37 Creatinine 1.6 mg/dL (0.8-1.3) H 12/12/21 08:37 Estimated GFR 52 ml/min 12/12/21 08:37 BUN/Creatinine Ratio 18 % 12/12/21 08:37 Glucose 176 mg/dL (75-100) H 12/12/21 08:37 POC Glucose 121 mg/dL (70-105) H 12/12/21 12:01 Calcium 8.2 mg/dL (8.4-10.2) L 12/12/21 08:37 Total Bilirubin 0.20 mg/dL (0.1-1.2) 12/11/21 07:38 AST 14 units/L (5-40) 12/11/21 07:38 ALT 14 units/L (7-56) 12/11/21 07:38 Alkaline Phosphatase 32 units/L (35-129) L 12/11/21 07:38 Total Protein 5.9 g/dL (6.3-8.2) L 12/11/21 07:38 Albumin 3.7 g/dL (3.9-5) L 12/11/21 07:38 Albumin/Globulin Ratio 1.7 % 12/11/21 07:38 Blood Type A POSITIVE 12/11/21 07:42 Antibody Screen Negative 12/11/21 07:42 Crossmatch See Detail 12/11/21 07:42 Cooper/IV: Voiding Method Toilet Active Medications - Current Medications Current Medications: Generic Name Dose Route Start Last Admin Trade Name Coty PRN Reason Stop Dose Admin Acetaminophen 650 mg 12/11/21 13:08 Acetaminophen 325 Mg Tab PO Q4H PRN Pain MILD(1-3)/Fever >100.5/MUELLER Dextrose 50 ml 12/12/21 11:00 Dextrose 50% In Water (25gm) 50 Ml Syringe IV Q30MIN PRN Hypoglycemia Protocol Sodium Chloride 1,000 mls @ 100 mls/hr 12/12/21 00:15 12/12/21 00:53 Nacl 0.9% 1000 Ml IV 100 mls/hr DIRECT PIETER Administration Sodium Chloride 500 mls @ 0 mls/hr 12/12/21 09:53 Nacl 0.9% 500 Ml IV ONCE PIETER As Directed Insulin Human Regular 0 units 12/12/21 11:30 Insulin Regular, Human 100 Units/1 Ml SUB-Q ACHS PIETER Protocol Morphine Sulfate 2 mg 12/11/21 13:12 Morphine 2 Mg/1 Ml Inj IV Q4H PRN Pain, Moderate (4-6) Ondansetron HCl 4 mg 12/11/21 13:08 Ondansetron 4 Mg/2 Ml Inj IV Q8H PRN Nausea And Vomiting Sodium Chloride 10 ml 12/11/21 22:00 12/11/21 22:18 Sodium Chloride 0.9% 10 Ml Flush Syringe IV 10 ml BID PIETER Administration Sodium Chloride 10 ml 12/11/21 13:08 Sodium Chloride 0.9% 10 Ml Flush Syringe IV PRN PRN LINE FLUSH
--- NOTE | 2021-12-12 16:52 | Post Anesthesia Evaluation ---
- Post Anesthesia Evaluation Patient Participated: Yes Airway Patent: Yes Stable Respiratory Function: Yes Nausea/Vomiting: No Temp > 96.8F: Yes Pain Manageable: Yes Adequeate Hydration: Yes Anesthesia Complications: No Block Receding Appropriately: Not Applicable Patient on Ventilator: No
[2021-12-12] MEDS: PANTOPRAZOLE 20 MG TAB PO SCH (17:15)
[2021-12-13] MEDS: INSULIN REGULAR, HUMAN 100 UNITS/1 ML SUB-Q SCH ×5 (00:01→22:05)
[2021-12-13 05:42] LABS: Basophils % (Auto) 0.5 % (0.0-1.8); Eosinophils # (Auto) 0.2 K/mm3 (0.0-0.4); Eosinophils % (Auto) 2.5 % (0.0-4.3); Hematocrit 23.1 % (35.5-45.6); Hemoglobin 7.6 gm/dl (11.8-15.2); Lymphocytes # (Auto) 1.8 K/mm3 (1.2-5.4); Lymphocytes % (Auto) 29.3 % (13.4-35.0); Mean Corpuscular HGB Conc 33 % (32-34); Mean Corpuscular Volume 81 fl (84-94); Monocytes # (Auto) 0.7 K/mm3 (0.0-0.8); Monocytes % (Auto) 10.4 % (0.0-7.3); Platelet Count 158 K/mm3 (140-440); Red Blood Count 2.86 M/mm3 (3.65-5.03); Red Cell Distribution Width 19.3 % (13.2-15.2)
[2021-12-13 06:02] LABS: BUN/Creatinine Ratio 11; Blood Urea Nitrogen 16 mg/dL (9-20); Calcium 7.5 mg/dL (8.4-10.2); Hemolysis Index 18
[2021-12-13] MEDS ORDERED: CALCIUM GLUCONATE 1,000 MG in SODIUM CHLORIDE 0.9% 100 ML IV ONE (07:54)
--- NOTE | 2021-12-13 08:37 | Gastroenterology Progress Note ---
Assessment and Plan Consistent with recurrent diverticular bleed status post colonoscopy with clipping Hemoglobin stable and no more bleeding therefore from GI perspective patient can be discharged with outpatient follow-up. We will sign off please call us back if we can be of any further assistance - Patient Problems (1) Diverticula of colon Current Visit: Yes Status: Acute (2) Lower GI bleed Current Visit: Yes Status: Acute (3) Rectal bleeding Current Visit: Yes Status: Acute Subjective Date of service: 12/13/21 Principal diagnosis: Diverticular bleed Interval history: Patient reports no more GI bleeding Feeling well Objective - Constitutional Vitals: Temp Pulse Resp BP Pulse Ox 98.7 F 65 18 138/58 98 12/13/21 05:21 12/13/21 05:21 12/13/21 05:21 12/13/21 05:21 12/13/21 05:21 General appearance: no acute distress - EENT Eyes: EOM intact - Neck Neck: supple - Respiratory Respiratory effort: normal - Gastrointestinal General gastrointestinal: Present: soft, non-tender - Labs CBC & Chem 7: 12/13/21 05:09 12/13/21 05:09 Labs: Laboratory Results - last 24 hr 12/11/21 12/12/21 12/12/21 07:42 08:37 08:37 WBC 6.9 RBC 2.58 L Hgb 6.5 L Hct 20.3 L MCV 79 L MCH 25 L MCHC 32 RDW 20.8 H Plt Count 190 Lymph % (Auto) Hinds % (Auto) Eos % (Auto) Baso % (Auto) Lymph # (Auto) Hinds # (Auto) Eos # (Auto) Baso # (Auto) Seg Neutrophils % Seg Neutrophils # Sodium 143 Potassium 4.5 Chloride 113.1 H Carbon Dioxide 22 Anion Gap 12 BUN 29 H Creatinine 1.6 H Estimated GFR 52 BUN/Creatinine Ratio 18 Glucose 176 H POC Glucose Calcium 8.2 L Blood Type A POSITIVE Antibody Screen Negative Crossmatch See Detail 12/12/21 12/12/21 12/12/21 12:01 16:09 21:27 WBC RBC Hgb Hct MCV MCH MCHC RDW Plt Count Lymph % (Auto) Hinds % (Auto) Eos % (Auto) Baso % (Auto) Lymph # (Auto) Hinds # (Auto) Eos # (Auto) Baso # (Auto) Seg Neutrophils % Seg Neutrophils # Sodium Potassium Chloride Carbon Dioxide Anion Gap BUN Creatinine Estimated GFR BUN/Creatinine Ratio Glucose POC Glucose 121 H 131 H 133 H Calcium Blood Type Antibody Screen Crossmatch 12/13/21 12/13/21 05:09 05:09 WBC 6.3 RBC 2.86 L Hgb 7.6 L Hct 23.1 L MCV 81 L MCH 27 L MCHC 33 RDW 19.3 H Plt Count 158 Lymph % (Auto) 29.3 Hinds % (Auto) 10.4 H Eos % (Auto) 2.5 Baso % (Auto) 0.5 Lymph # (Auto) 1.8 Hinds # (Auto) 0.7 Eos # (Auto) 0.2 Baso # (Auto) 0.0 Seg Neutrophils % 57.3 Seg Neutrophils # 3.6 Sodium 143 Potassium 4.3 Chloride 113.7 H Carbon Dioxide 23 Anion Gap 11 BUN 16 Creatinine 1.4 H Estimated GFR > 60 BUN/Creatinine Ratio 11 Glucose 136 H POC Glucose Calcium 7.5 L Blood Type Antibody Screen Crossmatch
[2021-12-13] MEDS ORDERED: CALC GLUCONATE 1GM/NS 100 ML 1 GM/100 ML BAG IV ONE (09:00)
--- NOTE | 2021-12-13 11:14 | Discharge Summary ---
Providers - Providers Date of Admission: 12/11/21 13:08 Date of discharge: 12/13/21 Attending physician: JAYESH SAXENA MD 12/11/21 12:40 Consult to Physician [CONS] Urgent Comment: Consulting Provider: ROSE BENITEZ Physician Instructions: Reason For Exam: rectal bleeding, anemia 12/11/21 16:55 Consult to Physician [CONS] Routine Comment: Consulting Provider: GARFIELD VALLEJO I. Physician Instructions: Reason For Exam: Lower GI bleed Primary care physician: NOBLE BUENROSTRO RN Hospitalization Reason for admission: Hematochezia, symptomatic anemia, DANNI on CKD stage III Condition: Stable Pertinent studies: Reviewed. Procedures: Colonoscopy status post diverticular clipping Hospital course: Patient is a 71-year-old male history of hypertension, type 2 diabetes, coronary artery disease with stent placement x3 around August 2019 presents to the hospital complaining of intermittent blood with bowel movement for the past 4 days. Patient planes of generalized weakness without dyspnea on exertion, abdominal pain, or chest pain. Last blood in the stool was prior to ED arrival this morning. As per medical record review patient was admitted here February 2021 for hemoglobin of 6 and rectal bleeding suspected to be due to di verticulosis. Patient did not follow-up with outpatient GI as suggested for colonoscopy. Last colonoscopy was 2009 as per patient. In the ED, the patient was found to be hemodynamically stable. Patient's labs were remarkable for creatinine 1.8 and hemoglobin 7.1. Gastroenterology was consulted in the ED for further management. Patient was transfused a total of 3 units packed RBCs. Patient underwent colonoscopy (12/12/2021) revealing "single diverticula in the mid ascending colon with some adherent streaks of heme with patchy superficial vessels with a punctate raised area of redness suggestive of a vessel; clip was placed on this lesion; the remaining: Was normal-appearing with scattered diverticula noted throughout". The patient's hemoglobin is currently 7.6. Patient will be discharging home on ferrous sulfate 325 mg daily. Patient will be following up with gastroenterology in the outpatient setting, and the patient expressed understanding. The patient's DANNI has also clinically improved. Patient is medically clear for discharge. 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, [id number] type 2 diabetes mellitus, hypertension, hyperlipidemia, GERD Time spent for discharge: 45 min Core Measure Documentation - Palliative Care Palliative Care/ Comfort Measures: Not Applicable - Core Measures Any of the following diagnoses?: none Exam - Constitutional Vitals: Temp Pulse Resp BP Pulse Ox 98.7 F 65 18 138/58 98 12/13/21 05:21 12/13/21 05:21 12/13/21 05:21 12/13/21 05:21 12/13/21 05:21 General appearance: Present: no acute distress, well-nourished - EENT Eyes: Present: PERRL, EOM intact ENT: hearing intact, clear oral mucosa, dentition normal - Neck Neck: Present: supple, normal ROM - Respiratory Respiratory effort: normal Respiratory: bilateral: CTA - Cardiovascular Rhythm: regular Heart Sounds: Present: S1 & S2 - Extremities Extremities: no ischemia, pulses intact, pulses symmetrical, No edema, normal temperature, normal color, Full ROM Peripheral Pulses: within normal limits - Abdominal General gastrointestinal: Present: soft, non-tender, non-distended, normal bowel sounds Male genitourinary: Present: deferred - Rectal Rectal Exam: deferred - Integumentary Integumentary: Present: clear, warm, dry - Musculoskeletal Musculoskeletal: strength equal bilaterally - Psychiatric Psychiatric: appropriate mood/affect, intact judgment & insight, memory intact, cooperative - Neurologic Neurologic: CNII-XII intact, moves all extremities - Allied Health Allied health notes reviewed: nursing Plan Activity: advance as tolerated Diet: low salt, diabetic Additional Instructions: Patient is a 71-year-old male history of hypertension, type 2 diabetes, coronary artery disease with stent placement x3 around August 2019 presents to the hospital complaining of intermittent blood with bowel movement for the past 4 days. Patient planes of generalized weakness without dyspnea on exertion, abdominal pain, or chest pain. Last blood in the stool was prior to ED arrival this morning. As per medical record review patient was admitted here February 2021 for hemoglobin of 6 and rectal bleeding suspected to be due to diverticulosis. Patient did not follow-up with outpatient GI as suggested for colonoscopy. Last colonoscopy was 2009 as per patient. In the ED, the patient was found to be hemodynamically stable. Patient's labs were remarkable for creatinine 1.8 and hemoglobin 7.1. Gastroenterology was consulted in the ED for further management. Patient was transfused a total of 3 units packed RBCs. Patient underwent colonoscopy (12/12/2021) revealing "single diverticula in the mid ascending colon with some adherent streaks of heme with patchy superficial vessels with a punctate raised area of redness suggestive of a vessel; clip was placed on this lesion; the remaining: Was normal-appearing with scattered diverticula noted throughout". The patient's hemoglobin is currently 7.6. Patient will be discharging home on ferrous sulfate 325 mg daily. Patient will be following up with gastroenterology in the outpatient setting, and the patient expressed understanding. The patient's DANNI has also clinically improved. Patient is medically clear for discharge. Care Plan Goals: Patient is medically cleared for discharge. Assessment: Patient is a 71-year-old male history of hypertension, type 2 diabetes, coronary artery disease with stent placement x3 around August 2019 presents to the hospital complaining of intermittent blood with bowel movement for the past 4 days. Patient planes of generalized weakness without dyspnea on exertion, abdominal pain, or chest pain. Last blood in the stool was prior to ED arrival this morning. As per medical record review patient was admitted here February 2021 for hemoglobin of 6 and rectal bleeding suspected to be due to diverticulosis. Patient did not follow-up with outpatient GI as suggested for colonoscopy. Last colonoscopy was 2009 as per patient. In the ED, the patient was found to be hemodynamically stable. Patient's labs were remarkable for creatinine 1.8 and hemoglobin 7.1. Gastroenterology was consulted in the ED for further management. Patient was transfused a total of 3 units packed RBCs. Patient underwent colonoscopy (12/12/2021) revealing "single diverticula in the mid ascending colon with some adherent streaks of heme with patchy superficial vessels with a punctate raised area of redness suggestive of a vessel; clip was placed on this lesion; the remaining: Was normal-appearing with scattered diverticula noted throughout". The patient's hemoglobin is currently 7.6. Patient will be discharging home on ferrous sulfate 325 mg daily. Patient will be following up with gastroenterology in the outpatient setting, and the patient expressed understanding. The patient's DANNI has also clinically improved. Patient is medically clear for discharge. Follow up with: NOBLE BUENROSTRO RN [Primary Care Provider] - 7 Days Prescriptions: Ferrous Sulfate [Feosol 325 MG tab] 325 mg PO QDAY #30 tablet
[2021-12-13] MEDS: PANTOPRAZOLE 20 MG TAB PO SCH (11:35)
[2021-12-13] MEDS: FERROUS SULFATE 325 MG TAB PO SCH (12:31)
--- NOTE | 2021-12-13 13:49 | Progress Note ---
Assessment and Plan 71 yo man with DM, CAD, HTN, recurrent diverticular bleeding from right colon. underwent colonoscopy with clip placement yesterday, had an uneventful night but he bled again this afternoon, he said he passed only blood that looked red on to ilet water. he is hemodynamically stable, GI was notified by Nurse. recommend repeat CBC in am, cancel discharge, continue inpatient monitoring, NPO after midnight in case he needs an intervention in am. I discussed with the patient that his right colon is the source of bleeding and if bleeding is recurrent and severe he might need surgical intervention to remove his right colon. Subjective Date of service: 12/13/21 Patient Reports: Positive: feels better ( but had a bloody BM just now) Objective Vital Signs - 12hr 12/13/21 12/13/21 12/13/21 05:21 09:00 12:03 Temperature 98.7 F 98.5 F Pulse Rate 65 Respiratory 18 18 Rate Blood Pressure 138/58 158/68 O2 Sat by Pulse 98 99 Oximetry - General physical appearance well developed, no distress - CArdiovascular Rhythm: regular - Abdomen soft (non distended, non tender) - Neurologic normal coordination, normal sensation - Labs 12/13/21 05:09 12/13/21 05:09 Diabetes panel 12/13/21 Range/Units 05:09 Sodium 143 (137-145) mmol/L Potassium 4.3 (3.6-5.0) mmol/L Chloride 113.7 H (98-107) mmol/L Carbon Dioxide 23 (22-30) mmol/L BUN 16 (9-20) mg/dL Creatinine 1.4 H (0.8-1.3) mg/dL Glucose 136 H (75-100) mg/dL Calcium 7.5 L (8.4-10.2) mg/dL Calcium panel 12/13/21 Range/Units 05:09 Calcium 7.5 L (8.4-10.2) mg/dL Pituitary panel 12/13/21 Range/Units 05:09 Sodium 143 (137-145) mmol/L Potassium 4.3 (3.6-5.0) mmol/L Chloride 113.7 H (98-107) mmol/L Carbon Dioxide 23 (22-30) mmol/L BUN 16 (9-20) mg/dL Creatinine 1.4 H (0.8-1.3) mg/dL Glucose 136 H (75-100) mg/dL Calcium 7.5 L (8.4-10.2) mg/dL Adrenal panel 12/13/21 Range/Units 05:09 Sodium 143 (137-145) mmol/L Potassium 4.3 (3.6-5.0) mmol/L Chloride 113.7 H (98-107) mmol/L Carbon Dioxide 23 (22-30) mmol/L BUN 16 (9-20) mg/dL Creatinine 1.4 H (0.8-1.3) mg/dL Glucose 136 H (75-100) mg/dL Calcium 7.5 L (8.4-10.2) mg/dL
[2021-12-13] MEDS ORDERED: LISINOPRIL 40 MG TAB PO SCH (14:00)
--- NOTE | 2021-12-13 14:02 | Post Anesthesia Evaluation ---
- Post Anesthesia Evaluation Patient Participated: Yes Airway Patent: Yes Stable Respiratory Function: Yes Nausea/Vomiting: No Temp > 96.8F: Yes Pain Manageable: Yes Adequeate Hydration: Yes Anesthesia Complications: No Block Receding Appropriately: Not Applicable Patient on Ventilator: No Other Comments: patient reports some residual rectal hemorrhage
[2021-12-14 06:44] LABS: Hematocrit 21.2 % (35.5-45.6); Hemoglobin 7.1 gm/dl (11.8-15.2); Mean Corpuscular HGB Conc 34 % (32-34); Mean Corpuscular Volume 80 fl (84-94); Platelet Count 168 K/mm3 (140-440); Red Blood Count 2.64 M/mm3 (3.65-5.03)
[2021-12-14] MEDS: INSULIN REGULAR, HUMAN 100 UNITS/1 ML SUB-Q SCH ×2 (07:55→11:30)
[2021-12-14] MEDS: FERROUS SULFATE 325 MG TAB PO SCH (10:00)
[2021-12-14] MEDS: PANTOPRAZOLE 20 MG TAB PO SCH (10:00)
[2021-12-14 12:13] VITALS: BP 150/53
--- NOTE | 2021-12-14 13:01 | Progress Note ---
Assessment and Plan 71-year-old male with right-sided diverticular bleed status post colonoscopy with clipping Patient is stable. He is now asymptomatic without additional episodes of lower GI bleeding. Hemoglobin stable. Plan: 1. Advanced diet as tolerated 2. May be discharged from surgical standpoint. Patient may follow-up with Dr. Flores ([facility]) in 3-4 weeks at [facility] location. He can call [phone] for appointment. Thank you for this consultation. Please call with any questions or concerns. Subjective Date of service: 12/14/21 Narrative: Pt seen and examined. No acute complaints. No lightheadedness or dizziness. Had a normal bowel movement today without any traces of blood. Denies abdominal pain. Tolerating a diet. Objective Vital Signs - 12hr 12/14/21 12/14/21 04:16 11:21 Temperature 98.1 F 97.9 F Pulse Rate 65 57 L Respiratory 18 18 Rate Blood Pressure 131/62 150/53 O2 Sat by Pulse 97 99 Oximetry - General physical appearance Narrative Exam: Gen.: Awake, alert, oriented x3. No apparent distress ENT: Trachea midline. No lymphadenopathy. No scleral icterus or conjunctival pallor CV: S1, S2 present Respiratory: No audible wheezes Abdomen: Soft, nondistended, nontender. No rebound, rigidity, guarding Extremities: No clubbing, cyanosis, edema - Labs 12/14/21 05:42 12/13/21 05:09
== END 2021-12-14 16:20 | disposition home or self-care (01) | DRG 377 ==
LOC: ED 06:08 → 3A 13:08
PROVIDERS: ADMIT Internal Medicine; ATTEND Student in an Organized Health Care Education/Training Program
PROC: 30233N1 Transfusion of Nonautologous Red Blood Cells into Peripheral Vein, Percutaneous Approach (ICD-10-PCS; 2021-12-11)
PROC: 0W3P8ZZ Control Bleeding in Gastrointestinal Tract, Via Natural or Artificial Opening Endoscopic (ICD-10-PCS; principal; 2021-12-12)
DX: K57.31 Diverticulosis of large intestine without perforation or abscess with bleeding (principal); N17.0 Acute kidney failure with tubular necrosis; D64.9 Anemia, unspecified; I25.10 Atherosclerotic heart disease of native coronary artery without angina pectoris; I12.9 Hypertensive chronic kidney disease with stage 1 through stage 4 chronic kidney disease, or unspecified chronic kidney disease; E11.22 Type 2 diabetes mellitus with diabetic chronic kidney disease; N18.30 Chronic kidney disease, stage 3 unspecified; E78.5 Hyperlipidemia, unspecified; Z79.82 Long term (current) use of aspirin; Z79.899 Other long term (current) drug therapy; Z82.49 Family history of ischemic heart disease and other diseases of the circulatory system; Z88.8 Allergy status to other drugs, medicaments and biological substances
CPT/HCPCS: 36415; 74174; 80048; 80053; 82271; 82962; 85025; 85027; 86850; 86900; 86901; 86920; G0378; Q9967; J0610; J1815; J2704; J7030; J7040; P9016